=== PATIENT | male | born 1975 | race Caucasian/White ===

== ENCOUNTER 2017-06-30 01:09 | Emergency (ER) | payer MEDICAID ==
[~2017-06-30] VITALS: Ht 172.7 cm; Wt 77.0 kg
[2017-06-30 01:24] VITALS: BP 148/82
[2017-06-30] MEDS ORDERED: LIDOCAINE HCL 1% 20ML VIAL (Pyxis) INJ MC ONE (01:30)
[2017-06-30] MEDS ORDERED: BACITRACIN ZINC OINT UDPKT TOP ONE (01:30)
[2017-06-30] MEDS ORDERED: TETANUS, DIPHTHERIA, PERTUSSIS VAC/PF 0.5ML (>7YR OLD) IM ONE (01:30)
== END 2017-06-30 02:30 | disposition home or self-care (01) ==
LOC: ER 01:32
DX: S61.411A Laceration without foreign body of right hand, initial encounter (principal); S61.412A Laceration without foreign body of left hand, initial encounter; Y08.89XA Assault by other specified means, initial encounter; Y93.89 Activity, other specified; Y92.89 Other specified places as the place of occurrence of the external cause; Y99.8 Other external cause status
CPT/HCPCS: 12002; 90471; 90715; 99283; J3490

== ENCOUNTER 2017-06-30 17:53 | Emergency (ER) | payer MEDICAID ==
[~2017-06-30] VITALS: Ht 170.2 cm; Wt 68.0 kg
[2017-06-30 18:04] VITALS: BP 117/79
== END 2017-06-30 19:21 | disposition home or self-care (01) ==
LOC: ER 18:20
DX: Z48.01 Encounter for change or removal of surgical wound dressing (principal)
CPT/HCPCS: 99283

== ENCOUNTER 2017-07-09 22:36 | Emergency (ER) | payer MEDICAID ==
[~2017-07-09] VITALS: Ht 170.2 cm; Wt 68.0 kg
[2017-07-09 22:59] VITALS: BP 130/89
== END 2017-07-10 01:30 | disposition home or self-care (01) ==
LOC: ER 22:59
DX: S61.411D Laceration without foreign body of right hand, subsequent encounter (principal); X58.XXXD Exposure to other specified factors, subsequent encounter; F17.200 Nicotine dependence, unspecified, uncomplicated
CPT/HCPCS: 99282

== ENCOUNTER 2017-09-08 00:41 | Emergency (ER) | payer MEDICAID ==
[~2017-09-08] VITALS: Ht 170.2 cm; Wt 66.0 kg
[2017-09-08] MEDS ORDERED: LIDOCAINE HCL 1% 20ML VIAL (Pyxis) INJ INFIL ONE (06:45)
[2017-09-08] MEDS ORDERED: LIDOCAINE HCL/PF 1% 10 MG/ML 5ML VIAL IJ SCH (07:15)
[2017-09-08] MEDS ORDERED: ONDANSETRON HCL 4MG/2ML VIAL IM ONE (07:45)
[2017-09-08 09:57] VITALS: BP 111/77
== END 2017-09-08 10:01 | disposition home or self-care (01) ==
LOC: ER 00:41
DX: S61.411A Laceration without foreign body of right hand, initial encounter (principal); W25.XXXA Contact with sharp glass, initial encounter; Y93.89 Activity, other specified; Y92.89 Other specified places as the place of occurrence of the external cause; Y99.8 Other external cause status
CPT/HCPCS: 12001; 73130; 96372; 99284; J2405; J3490; X7700; Z7610

== ENCOUNTER 2018-05-19 15:00 | Emergency (ER) | payer MEDICAID ==
[~2018-05-19] VITALS: Ht 165.1 cm; Wt 79.0 kg
[2018-05-19] MEDS ORDERED: KETOROLAC 30MG/ML VIAL IV STA (16:35)
[2018-05-19] MEDS ORDERED: SODIUM CHLORIDE 0.9% 1,000 ML IV ONE (16:35)
[2018-05-19 17:01] LABS: BASOPHILS % 0.6 % (0.0-2.0); EOSINOPHILS % 0.2 % (0.0-5.0); HEMATOCRIT. 43.1 % (42.0-52.0); LYMPHOCYTES % 10.7 % (20.0-50.0); MEAN CORPUSCULAR HEMOGLOBIN 31.8 pg (28.0-32.0); MEAN CORPUSCULAR VOLUME 91.2 fL (80.0-94.0); MEAN PLATELET VOLUME 7.9 fl (7.4-10.4); MONOCYTES % 8.4 % (2.0-8.0); NEUTROPHILS % 80.1 % (40.0-76.0); PLATELET 229 x1000/uL (130-400); RED BLOOD CELL COUNT 4.72 mill/uL (4.7-6.1); RED CELL DISTRIBUTION WIDTH 12.7 % (11.6-14.6)
[2018-05-19 17:03] LABS: CHLORIDE 103 mEq/L (98-107)
[2018-05-19 17:07] LABS: D-DIMER 0.7 mg/L FEU (<0.50); PROTHROMBIN TIME 9.8 sec (9.1-11.1)
[2018-05-19] MEDS ORDERED: IOHEXOL-350 100 ML BOTTLE ONE ×2 (20:40→22:59)
[2018-05-19 22:50] VITALS: BP 147/90
== END 2018-05-19 22:59 | disposition home or self-care (01) ==
LOC: ER 15:00
DX: S22.31XA Fracture of one rib, right side, initial encounter for closed fracture (principal); F41.9 Anxiety disorder, unspecified; X58.XXXA Exposure to other specified factors, initial encounter; Y93.89 Activity, other specified; Y92.89 Other specified places as the place of occurrence of the external cause
CPT/HCPCS: 36415; 71045; 71275; 80053; 83605; 83880; 84484; 85025; 85379; 85610; 96374; 99284; J1885; J7030; Q9967